=== PATIENT | male | born 1985 | race African-American/Black ===

== ENCOUNTER 2016-08-18 11:20 | Emergency (ER) | payer SELFPAY ==
[~2016-08-18] VITALS: Ht 177.8 cm; Wt 99.8 kg
[~2016-08-18 11:20] MED LIST: ALBUTEROL SULF8.5 GM INH; AZITHROMYCIN250 MG ORAL; CIPROFLOXACIN500 M2 ORAL; IBUPROFEN600 MG ORAL; NKM; NORCO 5-325 TA1 EACH ORAL; ZOFRAN4 MG ORAL
[2016-08-18 11:48] VITALS: BP 156/109
[2016-08-18] MEDS ORDERED: Albuterol ud Inhalation HHN ONE (12:00)
[2016-08-18 12:38] LABS: BASOPHILS % (AUTO) 1.1 % (0.0-2.0); EOSINOPHILS % (AUTO) 0.7 % (0.0-3.0); LYMPHOCYTES % (AUTO) 20.2 % (20.0-45.0); MEAN CORPUSCULAR HEMOGLOBIN 28.2 PG (27.0-31.0); MEAN CORPUSCULAR HGB CONC 31.7 G/DL (32.0-36.0); MEAN CORPUSCULAR VOLUME 89 FL (80-99); MEAN PLATELET VOLUME 8.7 FL (6.5-10.1); MONOCYTES % (AUTO) 4.9 % (1.0-10.0); NEUTROPHILS % (AUTO) 73.1 % (45.0-75.0); PLATELET COUNT 279 K/UL (150-450); RED BLOOD COUNT 5.51 M/UL (4.70-6.10); RED CELL DISTRIBUTION WIDTH 12.8 % (11.6-14.8); WHITE BLOOD COUNT 12.9 K/UL (4.8-10.8)
[2016-08-18 12:56] LABS: ALANINE AMINOTRANSFERASE 44 U/L (3-41); ALBUMIN/GLOBULIN RATIO 1.5 (1.0-2.7); ANION GAP 13 (5-15); ASPARTATE AMINO TRANSFERASE 34 U/L (5-40); CALCIUM 9.8 mg/dL (8.6-10.2); CARBON DIOXIDE 25 mEQ/L (20-30); CHLORIDE 101 mEQ/L (98-107); GLOMERULAR FILTRATION RATE > 60 mL/min (>60); HEMOLYSIS 3; SODIUM 139 mEQ/L (135-145)
[2016-08-18 12:57] LABS: TROPONIN I < 0.30 ng/mL (<=0.30)
[2016-08-18 13:21] VITALS: BP 155/91
--- NOTE | 2016-08-18 13:33 | Diagnostic Imaging Report ---
Indication: Chest pain Comparison: None A single view chest radiograph was obtained. Findings: Cardiomediastinal appearance is within normal limits for age. Pulmonary vascularity is appropriate. The diaphragmatic contour is smooth and costophrenic angles are sharp. No pleural effusions are identified. The bones are unremarkable. Impression: No acute findings
--- NOTE | 2016-08-18 13:40 | Emergency Room Report ---
History of Present Illness General Chief Complaint: Chest Pain Source: Patient Present Illness HPI Patient with dyspnea and chest pressure experienced while working yesterday. + cough. No fevers. Slight sore throat. Feels like he can't catch his breath. Initially reports never with inhaler, then when review of prior meds albuterol had been used. He states this episode is similar to that and that the inhaler helped at that time. Denies asthma or smoking. Possibly some yellow phlegm. Pressure is 5/10, substernal. No NVD. No headache. No rashes. No DM, HTN, fam Hx. No h/o clots, extremity pain/swelling. Allergies: Coded Allergies: No Known Allergies (Unverified , 09/16/14) Patient History Past Medical History: see triage record Social History: Denies: smoking Social History Narrative works at [employer] Reviewed Nursing Documentation: PMH: Agreed, PSxH: Agreed Nursing Documentation-PMH Past Medical History: No History, Except For Hx Hypertension: Yes Review of Systems All Other Systems: negative except mentioned in HPI Physical Exam Vital Signs Date Time Temp Pulse Resp B/P Pulse Ox O2 Delivery O2 Flow Rate FiO2 08/18/16 11:22 98.1 98 16 156/109 100 Room Air 08/18/16 12:10 100 Sp02 EP Interpretation: reviewed, normal General Appearance: well appearing, no apparent distress, GCS 15 Head: normocephalic Eyes: bilateral eye PERRL, bilateral eye normal inspection ENT: normal pharynx, moist mucus membranes Neck: supple Respiratory: wheezing, expiration Cardiovascular #1: regular rate, rhythm Cardiovascular #2: 2+ radial (R) Gastrointestinal: normal inspection, normal bowel sounds, non tender, no mass, non-distended Musculoskeletal: back normal, gait/station normal, normal range of motion Neurologic: alert, oriented x3, grossly normal Psychiatric: mood/affect normal Skin: normal inspection, warm/dry Medical Decision Making Diagnostic Impression: Primary Impression: Bronchospasm with bronchitis, acute Additional Impression: Chest pressure ER Course Patient presents with chest pressure and RICARDO. DDx: cardiac cause (pericarditis etc), bronchitis, PNA, bronchospasm, PE amongst others. VS and exam against latter. Needs evaluation with EKG, CXR, labs. Will treat with albuterol. Phlegm sounds infectious. As has bronchospasm - will cover with antibiotics. CXR no infiltrate. Labs with leukocytosis (no eosinophilia). Patient pressure resolved with breathing treatments. Patient stable for outpatient observation and treatment. Laboratory Tests Test 08/18/16 12:17 White Blood Count 12.9 K/UL (4.8-10.8) H Red Blood Count 5.51 M/UL (4.70-6.10) Hemoglobin 15.5 G/DL (14.2-18.0) Hematocrit 49.0 % (42.0-52.0) Mean Corpuscular Volume 89 FL (80-99) Mean Corpuscular Hemoglobin 28.2 PG (27.0-31.0) Mean Corpuscular Hemoglobin Concent 31.7 G/DL (32.0-36.0) L Red Cell Distribution Width 12.8 % (11.6-14.8) Platelet Count 279 K/UL (150-450) Mean Platelet Volume 8.7 FL (6.5-10.1) Neutrophils (%) (Auto) 73.1 % (45.0-75.0) Lymphocytes (%) (Auto) 20.2 % (20.0-45.0) Monocytes (%) (Auto) 4.9 % (1.0-10.0) Eosinophils (%) (Auto) 0.7 % (0.0-3.0) Basophils (%) (Auto) 1.1 % (0.0-2.0) Sodium Level 139 mEQ/L (135-145) Potassium Level 4.0 mEQ/L (3.4-4.9) Chloride Level 101 mEQ/L (98-107) Carbon Dioxide Level 25 mEQ/L (20-30) Anion Gap 13 (5-15) Blood Urea Nitrogen 9 mg/dL (7-23) Creatinine 1.0 mg/dL (0.7-1.2) Estimate Glomerular Filtration Rate > 60 mL/min (>60) Glucose Level 104 mg/dL (74-106) Calcium Level 9.8 mg/dL (8.6-10.2) Total Bilirubin 0.4 mg/dL (0.0-1.2) Aspartate Amino Transferase (AST) 34 U/L (5-40) Alanine Aminotransferase (ALT) 44 U/L (3-41) H Alkaline Phosphatase 58 U/L (40-129) Total Creatine Kinase 516 U/L (38-174) H Troponin I < 0.30 ng/mL (<=0.30) Pro-B-Type Natriuretic Peptide 14 pg/mL (0-125) Total Protein 8.0 g/dL (6.6-8.7) Albumin 4.8 g/dL (3.5-5.2) Globulin 3.2 g/dL Albumin/Globulin Ratio 1.5 (1.0-2.7) EKG Diagnostic Results Rate: normal Rhythm: NSR ST Segments: no acute changes Rhythm Strip Diag. Results EP Interpretation: yes Rhythm: NSR, no PVC's, no ectopy Chest X-Ray Diagnostic Results Chest X-Ray Diagnostic Results : Chest X-Ray Ordered: Yes # of Views/Limited/Complete: 1 View Indication: Shortness of Breath - chest pressure EP Interpretation: Yes Interpretation: no consolidation, no effusion, no pneumothorax, no acute cardiopulmonary disease Impression: No acute disease Interpreting ER Provider: Electronically signed by Lavon Paris MD Last Vital Signs Date Time Temp Pulse Resp B/P Pulse Ox O2 Delivery O2 Flow Rate FiO2 08/18/16 14:10 80 18 154/88 99 Room Air 08/18/16 12:10 100 08/18/16 11:48 98.1 Status: improved Disposition: HOME, SELF-CARE Condition: Improved Scripts Guaifenesin/Codeine Phos* (ROBITUSSIN AC*) 118 Ml Liquid 1 TSP ORAL Q6H Y for For Cough, #90 ML 0 Refills Prov: Lavon Paris M.D. 08/18/16 Azithromycin* (ZITHROMAX*) 250 Mg Tablet 250 MG ORAL DAILY, #4 TAB Prov: Lavon Paris M.D. 08/18/16 Albuterol Sulfate* (ALBUTEROL SULFATE MDI*) 8.5 Gm Hfa.aer.ad 2 PUFF INH Q6H, #1 EA 0 Refills Prov: Lavon Paris M.D. 08/18/16 Referrals: NOT CHOSEN REID/,REFERRING (PCP) Lavon Paris M.D. Aug 18, 2016 13:40
[2016-08-18] MEDS ORDERED: Azithromycin 250mg tab ORAL ONE (13:45)
[2016-08-18] MEDS ORDERED: ALBUTEROL SULF8.5 GM INH (14:02)
[2016-08-18] MEDS ORDERED: AZITHROMYCIN250 MG ORAL (14:02)
[2016-08-18] MEDS ORDERED: GUAIFENESIN-CO118 M1 ORAL (14:02)
[2016-08-18 14:10] VITALS: BP 154/88
--- NOTE | 2016-08-21 17:57 | Cardiology Report ---
APPROVED REPORT EKG Measurement Heart [id number] Normal sinus rhythm with sinus arrhythmia Normal ECG
== END 2016-08-18 14:18 | disposition home or self-care (01) ==
LOC: EMR 11:51
DX: J20.9 Acute bronchitis, unspecified (principal); R07.9 Chest pain, unspecified; I10 Essential (primary) hypertension; D72.829 Elevated white blood cell count, unspecified
CPT/HCPCS: 36415; 71010; 80053; 82550; 83880; 84484; 85025; 93005; 94640; 94664; 96374